=== PATIENT | female | born 1960 ===

== ENCOUNTER 2025-10-23 15:25 | Emergency (ER) | payer SELFPAY ==
[~2025-10-23] VITALS: Ht 160 cm; Wt 58.0 kg
[2025-10-23 15:31] VITALS: O2SAT 99
[2025-10-23] MEDS: LIDOCAINE 5% PATCH TOP STA (17:30)
[2025-10-23] MEDS: CYCLOBENZAPRINE 10MG TABLET PO ONE (17:30)
[2025-10-23] MEDS: IBUPROFEN 600MG TABLET PO ONE (17:30)
[2025-10-23 18:11] VITALS: BP 145/80; PULSE 80; RESP 15; TEMP 36.6; O2SAT 99
[2025-10-23] MEDS ORDERED: CYCL10TA21 MT (18:23)
[2025-10-23] MEDS ORDERED: LIDO700A30 TP (18:23)
[2025-10-23] MEDS ORDERED: IBUP-1455 MT (18:23)
== END 2025-10-23 18:37 | disposition home or self-care (01) ==
LOC: ER 15:25
DX: S16.1XXA Strain of muscle, fascia and tendon at neck level, initial encounter (principal); R51.9 Headache, unspecified; M25.511 Pain in right shoulder; E11.9 Type 2 diabetes mellitus without complications; Z98.890 Other specified postprocedural states; X58.XXXA Exposure to other specified factors, initial encounter; Y93.89 Activity, other specified; Y92.89 Other specified places as the place of occurrence of the external cause; Y99.8 Other external cause status
CPT/HCPCS: 99284